=== PATIENT | female | born 1990 | race Caucasian/White ===

== ENCOUNTER 2021-04-05 23:42 | Emergency (ER) | payer BC ==
[2021-04-06] MEDS ORDERED: Sulfamethoxazole/Trimethoprim 800-160 MG Tab PO ONE (00:58)
[2021-04-06] MEDS ORDERED: Sulfamethoxazole/Trimethoprim 800-160 MG Tab ONE (01:46)
[2021-04-06 02:13] LABS: CARBON DIOXIDE,CO2 28.3 mmol/L (21.0-32.0); POTASSIUM,K 3.7 mmol/L (3.5-5.1)
[2021-04-06] MEDS ORDERED: Iopamidol 755 MG/ML 500 ML Multipack Bottle IVPUSH STA (02:50)
--- NOTE | 2021-04-06 03:21 | CT ---
INDICATION: Right CVA tenderness. UTI, failed outpatient treatment. Evaluate for abscess. COMPARISON: CT of the abdomen and pelvis without intravenous contrast from 06/01/2015. TECHNIQUE: CT examination of the abdomen and pelvis was performed before and after the uneventful intravenous administration of 100 cc of Isovue 370 while 2.5 mm thick axial sections were obtained from the lung bases through the pubic symphysis. Oral contrast was not administered. Please note that all CT scans at this facility use dose modulation, iterative reconstruction, and/or weight-based dosing when appropriate to reduce radiation dose to as low as reasonably achievable. FINDINGS: In the abdomen, the liver, spleen, pancreas, and adrenals are normal in appearance. There is a nonobstructive 3 millimeter calculus in the anterior interpolar right kidney, unchanged in appearance compared to the previous study. The kidneys are otherwise normal in appearance with uniform enhancement, with nothing seen to suggest pyelonephritis or renal abscess. The 2 previously seen areas of decreased enhancement in the anterior and lateral upper pole of the right kidney from previous old pyelonephritis have resolved without scarring. There is abnormal enhancement of the urothelium of the right ureter consistent with nonspecific inflammation. The right ureter remains mildly dilated to the crossing of the iliac vessels. There is no sign of any associated mass or calculus to produce the hydroureter, and this appearance appears to be chronic. The gallbladder is normal in appearance. The abdominal aorta is normal in caliber with no sign of dilatation. There is no sign of retroperitoneal mass or adenopathy. The stomach, loops of small bowel, and colon in the abdomen are normal in appearance. Again seen is a small fat containing periumbilical hernia. In the pelvis, the appendix is normal in appearance with no sign of inflammatory process. The loops of small bowel and colon in the pelvis are normal in appearance. The left ovary is a new cyst measuring 2.4 x 1.4 centimeters. The uterus and right adnexal region are normal in appearance. There is a new tiny amount of free fluid in the cul-de-sac on the right, nonspecific. The urinary bladder is normal in appearance. There is no sign of pelvic or inguinal mass or adenopathy. There is no sign of free air or free fluid in the abdomen. There is no sign of free air or extraluminal air in the pelvis. The lung bases are clear. The osseous structures are normal in appearance for the patient`s age. IMPRESSION: CT of the abdomen shows no sign of pyelonephritis or renal abscess. Interval resolution of the previously seen 2 areas of focal pyelonephritis in the upper pole of the right kidney. Stable 3 millimeter nonobstructive calculus in the interpolar right kidney. New mild enhancement of the urothelium of the mildly distended right proximal ureter representing nonspecific inflammation. The ureteral dilatation is unchanged from the previous study. CT of the pelvis shows a new left ovarian cyst measuring up to 2.4 centimeters in diameter. New tiny amount of free fluid in the cul-de-sac, nonspecific. Please note that all CT scans at this facility use dose modulation, iterative reconstruction, and/or weight-based dosing when appropriate to reduce radiation dose to as low as reasonably achievable. Dictated by Danny Billingsley MD @ 04/06/2021 3:20:55 AM (Electronically Signed)
--- NOTE | 2021-04-06 04:43 | EDM.PDOC ---
ED HPI GENERAL MEDICAL PROBLEM - General Chief Complaint: Genitourinary Problem Stated Complaint: POSSIBLE KIDNEY INFECTION Time Seen by Provider: 04/06/21 00:21 - History of Present Illness INITIAL COMMENTS - FREE TEXT/NARRATIVE: CHIEF COMPLAINT(S): Kidney infection HISTORY OF PRESENT ILLNESS: This is a 31-year-old woman with a past medical history of recent urinary tract infection who comes to the emergency department with a chief complaint of kidney infection. The patient states that approximately 1 week ago she had 1 round of antibiotics for a urinary tract infection. She states that starting tonight she started to experience right- sided flank pain with radiation to her groin. She states that she has pain with urination but denies any hematuria or increased frequency. She denies any fevers or chills but states that she did have 1 episode of vomiting. She describes the pain as burning and sharp. She rates her pain as 10 out of 10. She states that she has not yet tried any pain medications. There are no relieving factors. There are no exacerbating factors. She denies any other symptoms such as vaginal discharge or vaginal bleeding. She denies any abdominal pain otherwise. REVIEW OF SYSTEMS: Constitutional: Denies fever, chills. Eyes: Denies eye pain Ears, Nose, Mouth, & Throat: Denies earache Cardiovascular: Denies chest pain Respiratory: Denies shortness of breath Gastrointestinal: Denies Nausea, vomiting, diarrhea, hematochezia. Genitourinary: Positive for dysuria and right flank pain Skin:Denies a rash MSK: Denies joint pain Neurological: Denies blurred vision Psychiatric: Denies depression PAST MEDICAL HISTORY: As per history of present illness and as reviewed below otherwise noncontributory. SURGICAL HISTORY: As per history of present illness and as reviewed below otherwise noncontributory. SOCIAL HISTORY: As per history of present illness and as reviewed below otherwise noncontributory. FAMILY HISTORY: As per history of present illness and as reviewed below otherwi se noncontributory. EXAMINATION OF ORGAN SYSTEMS/BODY AREAS: Constitutional: Blood pressure is 114/68, heart rate 88, respiratory rate 17 with an oxygen saturation 96% on room air. Temperature 37.1 General: Young woman who does not appear to be in acute distress Psychiatric: Appropriate mood and affect. Eyes: No scleral icterus or conjunctival erythema ENMT: Moist mucous membranes. No pharyngeal erythema Cardiovascular: Regular, rate, and rhythm. No gallops, murmurs, or rubs. Bilateral upper extremity pulses symmetric and intact. No peripheral edema. No JVD. Respiratory: Lungs clear to auscultation bilaterally. No wheezes, rales, or rhonchi. Gastrointestinal: Soft, non-tender, non-distended. Normoactive bowel sounds Genitourinary: Suprapubic tenderness to palpation and right flank tenderness. Musculoskeletal: Normal range of motion. Skin: No lesions or abrasions. Neurological: Alert, GCS 15 MEDICAL DECISION MAKING AND COURSE IN THE ED WITH INTERPRETATION/REVIEW OF DIAG NOSTIC STUDIES: This is a 31-year-old woman with a recent urinary tract infection who comes to the emergency department with right CVA tenderness and suprapubic tenderness. Patient's vitals are completely normal however given the asymmetry on examination I will obtain a CT abdomen pelvis to evaluate for perinephric abscess versus nephrolithiasis. Will obtain labs including CBC, BMP, urinalysis and a Covid swab. Obtain an hCG. Laboratory: CBC reveals a leukocytosis 11.71 otherwise unremarkable. BMP reveals elevated creatinine at 1.1. Glucose is elevated 137. Urinalysis is positive for nitrates, leukocyte esterase with 75-80 WBCs. Interpretation: Positive hCG is negative. Covid is negative. The radiological images were viewed by myself along with reading the report from the radiologist. CT abdomen pelvis with contrast reveals no sign of pyelonephritis or renal abscess. There is interval resolution of previously seen 2 areas of pyelonephritis in the upper pole of the right kidney. There is a stable 3 mm nonobstructive calculus in the interpolar right kidney. New mild enhancement of the urothelium of the mildly distended right proximal ureter representing nonspecific inflammation. The ureteral dilation is unchanged from prior. There is a new ovarian cyst measuring 2.4 cm. And a tiny amount of free fluid in the pelvis. After labs and imaging I did discuss the results with the patient. At this time given her recurrent urinary tract infections and abnormal findings on CT I did encourage her to follow-up with her primary care physician for a referral to a urologist to have further evaluation. I discussed she should continue her antibiotics as prescribed and to return if she had any new or worsening symptoms. She was amenable to discharge and had no further questions DISPOSITION: The patient was discharged home in stable condition. The patient will follow up with primary care physician in 3 to 5 days CONDITION: Fair PROCEDURES: None FINAL IMPRESSION(S)/DIAGNOSES: 1. Acute urinary tract infection Addy Massey M.D. - Related Data Allergies Allergy/AdvReac Type Severity Reaction Status Date / Time amoxicillin Allergy Swelling Verified 04/06/21 00:17 azithromycin Allergy Swelling Verified 04/06/21 00:16 Penicillins Allergy Swelling Verified 04/06/21 00:15 Home Meds: Home Meds Ciprofloxacin/Ciprofloxa HCl [Cipro Xr 500 mg Tablet] 500 mg PO BID #14 tbmp.24hr 06/01/15 [Rx] Hydrocodone/Acetaminophen [Hydrocodon-Acetaminophen 5-325] 1 each PO Q4HR PRN #2 0 tablet 06/01/15 [Rx] Ondansetron [Zofran] 4 mg BUCCAL Q4H #10 tab 06/01/15 [Rx] Sulfamethoxazole/Trimethoprim [Bactrim Ds Tablet] 1 each PO BID #10 tablet 04/06/21 [Rx] Past Medical History HEENT History: Reports: None Cardiovascular History: Reports: None Respiratory History: Reports: None Gastrointestinal History: Reports: None Genitourinary History: Reports: Renal Calculus [employer] DEVELOPER History: Reports: Musculoskeletal History: Reports: None Neurological History: Reports: None Psychiatric History: Reports: Depression Endocrine/Metabolic History: Reports: None Hematologic History: Reports: None Immunologic History: Reports: None Oncologic (Cancer) History: Reports: None Dermatologic History: Reports: None - Infectious Disease History Infectious Disease History: Reports: Chicken Pox - Past Surgical History Head Surgeries/Procedures: Reports: None HEENT Surgical History: Reports: None Cardiovascular Surgical History: Reports: None Female Surgical History: Reports: Tubal Ligation Endocrine Surgical History: Reports: None Musculoskeletal Surgical History: Reports: None Social & Family History - Family History Cardiac: Reports: Hypertension, Pacemaker Oncologic: Reports: Colon - Tobacco Use Tobacco Use Status *Q: Never Tobacco User - Caffeine Use Caffeine Use: Reports: Tea - Recreational Drug Use Recreational Drug Use: No ED ROS GENERAL - Review of Systems Review Of Systems: See Below ED EXAM, GENERAL - Physical Exam Exam: See Below Course - Vital Signs Last Recorded V/S: Last Vital Signs Temp 37.1 C 04/06/21 00:18 Pulse 89 04/06/21 04:44 Resp 16 04/06/21 04:44 BP 116/75 04/06/21 04:44 Pulse Ox 97 04/06/21 04:44 - Orders/Labs/Meds Labs: Laboratory Tests 04/06/21 04/06/21 04/06/21 Range/Units 00:35 00:35 01:40 WBC (4.0-11.0) K/uL RBC (4.30-5.90) M/uL Hgb (12.0-16.0) g/dL Hct (36.0-46.0) % MCV (80.0-98.0) fL MCH (27.0-32.0) pg MCHC (31.0-37.0) g/dL RDW Std Deviation (28.0-62.0) fl RDW Coeff of Shaylee (11.0-15.0) % Plt Count (150-400) K/uL MPV (7.40-12.00) fL Neut % (Auto) (48.0-80.0) % Lymph % (Auto) (16.0-40.0) % [place] % (Auto) (0.0-15.0) % Eos % (Auto) (0.0-7.0) % Baso % (Auto) (0.0-1.5) % Neut # (Auto) (1.4-5.7) K/uL Lymph # (Auto) (0.6-2.4) K/uL [place] # (Auto) (0.0-0.8) K/uL Eos # (Auto) (0.0-0.7) K/uL Baso # (Auto) (0.0-0.1) K/uL Nucleated RBC % /100WBC Nucleated RBCs # K/uL Sodium (136-145) mmol/L Potassium (3.5-5.1) mmol/L Chloride (98-107) mmol/L Carbon Dioxide (21.0-32.0) mmol/L BUN (7.0-18.0) mg/dL Creatinine (0.6-1.0) mg/dL Est Cr Clr Drug Dosing mL/min Estimated GFR (MDRD) ml/min Glucose (74-106) mg/dL Calcium (8.5-10.1) mg/dL Urine Color YELLOW Urine Appearance CLOUDY Urine pH 7.5 (5.0-8.0) Ur Specific [place] 1.020 (1.001-1.035) Urine Protein >=300 H (NEGATIVE) mg/dL Urine Glucose (UA) NEGATIVE (NEGATIVE) mg/dL Urine Ketones NEGATIVE (NEGATIVE) mg/dL Urine Occult Blood LARGE H (NEGATIVE) Urine Nitrite POSITIVE H (NEGATIVE) Urine Bilirubin NEGATIVE (NEGATIVE) Urine Urobilinogen 0.2 (<2.0) EU/dL Ur Leukocyte Esterase MODERATE H (NEGATIVE) Urine RBC 25-30 (0-2/HPF) Urine WBC 75-80 (0-5/HPF) Ur Epithelial Cells RARE (NONE-FEW) Urine Bacteria FEW (NEGATIVE) Urine HCG, Qual NEGATIVE (NEGATIVE) SARS-CoV-2 RNA (CINTHYA) NEGATIVE (NEGATIVE) 04/06/21 04/06/21 Range/Units 01:40 01:40 WBC 11.71 H (4.0-11.0) K/uL RBC 4.41 (4.30-5.90) M/uL Hgb 12.7 (12.0-16.0) g/dL Hct 37.4 (36.0-46.0) % MCV 84.8 (80.0-98.0) fL MCH 28.8 (27.0-32.0) pg MCHC 34.0 (31.0-37.0) g/dL RDW Std Deviation 37.8 (28.0-62.0) fl RDW Coeff of Shaylee 12 (11.0-15.0) % Plt Count 273 (150-400) K/uL MPV 9.40 (7.40-12.00) fL Neut % (Auto) 84.9 H (48.0-80.0) % Lymph % (Auto) 9.4 L (16.0-40.0) % [place] % (Auto) 5.0 (0.0-15.0) % Eos % (Auto) 0.6 (0.0-7.0) % Baso % (Auto) 0.1 (0.0-1.5) % Neut # (Auto) 9.9 H (1.4-5.7) K/uL Lymph # (Auto) 1.1 (0.6-2.4) K/uL [place] # (Auto) 0.6 (0.0-0.8) K/uL Eos # (Auto) 0.1 (0.0-0.7) K/uL Baso # (Auto) 0.0 (0.0-0.1) K/uL Nucleated RBC % 0.0 /100WBC Nucleated RBCs # 0 K/uL Sodium 138 (136-145) mmol/L Potassium 3.7 (3.5-5.1) mmol/L Chloride 102 (98-107) mmol/L Carbon Dioxide 28.3 (21.0-32.0) mmol/L BUN 14 (7.0-18.0) mg/dL Creatinine 1.1 H (0.6-1.0) mg/dL Est Cr Clr Drug Dosing 60.17 mL/min Estimated GFR (MDRD) 57.2 ml/min Glucose 137 H (74-106) mg/dL Calcium 8.7 (8.5-10.1) mg/dL Urine Color Urine Appearance Urine pH (5.0-8.0) Ur Specific [place] (1.001-1.035) Urine Protein (NEGATIVE) mg/dL Urine Glucose (UA) (NEGATIVE) mg/dL Urine Ketones (NEGATIVE) mg/dL Urine Occult Blood (NEGATIVE) Urine Nitrite (NEGATIVE) Urine Bilirubin (NEGATIVE) Urine Urobilinogen (<2.0) EU/dL Ur Leukocyte Esterase (NEGATIVE) Urine RBC (0-2/HPF) Urine WBC (0-5/HPF) Ur Epithelial Cells (NONE-FEW) Urine Bacteria (NEGATIVE) Urine HCG, Qual (NEGATIVE) SARS-CoV-2 RNA (CINTHYA) (NEGATIVE) Meds: Medications Discontinued Medications Generic Name Dose Route Start Last Admin Trade Name Freq PRN Reason Stop Dose Admin Iopamidol 100 ml 04/06/21 02:50 04/06/21 02:51 Iopamidol 755 Mg/Ml 500 Ml Multipack Bottle IVPUSH 04/06/21 02:51 100 ml ONETIME STA Administration Trimethoprim/Sulfamethoxazole 1 tab 04/06/21 00:58 04/06/21 01:47 Sulfamethoxazole/Trimethoprim 800-160 Mg Tab PO 04/06/21 00:59 1 tab ONETIME ONE Administration Trimethoprim/Sulfamethoxazole Confirm 04/06/21 01:46 04/06/21 04:44 Sulfamethoxazole/Trimethoprim 800-160 Mg Tab Administered 04/06/21 01:47 Not Given Dose 1 tab .ROUTE .STK-MED ONE Departure - Departure Time of Disposition: 04:42 Disposition: Home, Self-Care 01 Condition: Fair Clinical Impression: UTI, Urinary tract infectious disease - Discharge Information *PRESCRIPTION DRUG MONITORING PROGRAM REVIEWED*: No *COPY OF PRESCRIPTION DRUG MONITORING REPORT IN PATIENT RASHI: No Prescriptions: Sulfamethoxazole/Trimethoprim [Bactrim Ds Tablet] 1 each PO BID #10 tablet Instructions: Urinary Tract Infection, Adult Referrals: PCP,None [Primary Care Provider] - Forms: ED Department Discharge Additional Instructions: You were evaluated today on an emergent basis. At this time I recommend that you use Tylenol and Motrin for pain relief. Your urine did show evidence of an infection and given the CT findings all of the abnormalities on the right side appear to be chronic. Given your recurrent urinary tract infection I do recommend you follow-up with a primary care physician in 3 to 5 days for referral to a urologist so that further work-up can be initiated. If you have any worsening pain, fever and not feeling better please return to the emergency department. Please use the antibiotics as prescribed until all antibiotics are finished. [facility] [address] [place] [address] [place] [address] The patient is informed of any results of their evaluation and diagnostic workup and all questions are answered. They are given discharge instructions and return precautions. The patient is stable for discharge. The patient states they understand and agree with the plan and that they will return if their symptoms get worse or if they have any new concerns. The following information is given to patients seen in the emergency department who are being discharged to home. This information is to outline your options for follow-up care. We provide all patients seen in our emergency department with a follow-up referral. The need for follow-up, as well as the timing and circumstances, are variable depending upon the specifics of your emergency department visit. If you don't have a primary care physician on staff, we will provide you with a referral. We always advise you to contact your personal physician following an emergency department visit to inform them of the circumstance of the visit and for follow-up with them and/or the need for any referrals to a consulting specialist. The emergency department will also refer you to a specialist when appropriate. This referral assures that you have the opportunity for follow-up care with a specialist. All of these measure are taken in an effort to provide you with optimal care, which includes your follow-up. Under all circumstances we always encourage you to contact your private physician who remains a resource for coordinating your care. When calling for follow-up care, please make the office aware that this follow-up is from your recent emergency room visit. If for any reason you are refused follow-up, please contact the [facility] Emergency Department at and asked to speak to the emergency department charge nurse.
[2021-04-06 04:45] VITALS: BP 116/75; PULSE 89
== END 2021-04-06 04:50 | disposition home or self-care (01) ==
LOC: MW.ED 23:42
DX: N39.0 Urinary tract infection, site not specified (principal); Z88.0 Allergy status to penicillin; Z88.1 Allergy status to other antibiotic agents; Z20.822 Contact with and (suspected) exposure to COVID-19
CPT/HCPCS: 36415; 74178; 80048; 81001; 81025; 85025; 87086; 87088; 87186; 87635; 99284; A9270; Q9967; U0002

== ENCOUNTER 2022-11-10 22:03 | Emergency (ER) | payer OTHER, BC ==
[2022-11-10 22:12] VITALS: BP 130/81; PULSE 88
[2022-11-10] MEDS ORDERED: Diphtheria,Pertussis(Acell),Tetanus Vaccine 0.5 ML Syringe IM ONE (22:20)
== END 2022-11-10 22:51 | disposition home or self-care (01) ==
LOC: MW.ED 22:03
DX: S61.412A Laceration without foreign body of left hand, initial encounter (principal); Z23 Encounter for immunization; Z88.0 Allergy status to penicillin; Z88.1 Allergy status to other antibiotic agents; W25.XXXA Contact with sharp glass, initial encounter; Y93.01 Activity, walking, marching and hiking
CPT/HCPCS: 12002; 73120-26-LT; 73120-LT; 90471; 90715; 99283; 99283-25

== ENCOUNTER 2023-10-12 06:33 | Day surgery (SDC) | payer BC ==
[2023-10-11 13:27] LABS: HEMATOCRIT 35.1 % (37.0-47.0); HEMOGLOBIN 11.4 g/dL (12.0-16.0); MEAN CORPUSCULAR HEMOGLOBIN 24.4 pg (28.0-32.0); MEAN CORPUSCULAR HGB CONC 32.5 g/dL (32.0-36.0); MEAN PLATELET VOLUME 9.5 fL (9.4-12.3); PLATELET COUNT,PLT 297 K/uL (150-400); RED BLOOD CELL COUNT 4.68 M/uL (4.10-5.30); WHITE BLOOD CELL COUNT,WBC 4.61 K/uL (3.9-11.3)
[2023-10-11 13:38] LABS: CALCIUM 8.7 mg/dL (8.5-10.1); CARBON DIOXIDE,CO2 25.3 mmol/L (21.0-32.0); CREATININE 0.9 mg/dL (0.6-1.0); POTASSIUM,K 3.2 mmol/L (3.5-5.1)
[2023-10-12] MEDS: Scopalamine 1mg/3day Transdermal Patch TOP ONE (06:48)
[2023-10-12] MEDS: Lactated Ringers 1,000 ML IV SCH (07:02)
[2023-10-12] MEDS ORDERED: Methylene Blue 100 MG/10 ML SDV ONE (07:23)
[2023-10-12] MEDS ORDERED: Bupivacaine 0.25% 30 ML SDV ONE ×2 (07:23→07:38)
[2023-10-12] MEDS ORDERED: dexmedeTOMIDine HCl 200 MCG/2 ML SDV ONE (07:28)
[2023-10-12] MEDS ORDERED: Morphine 2 MG/ML SYRINGE IVPUSH PRN (07:28)
[2023-10-12] MEDS ORDERED: Naloxone 0.4 MG/ML SDV IVPUSH PRN (07:28)
[2023-10-12] MEDS ORDERED: Ondansetron 4 MG/2 ML SDV IVPUSH PRN ×2 (07:28→10:00)
[2023-10-12] MEDS ORDERED: Albuterol 0.083% 2.5 MG/3 ML Neb Soln NEB PRN (07:28)
[2023-10-12] MEDS ORDERED: droPERidol 5 MG/2 ML SDV IVPUSH PRN (07:28)
[2023-10-12] MEDS ORDERED: Metoclopramide 10 MG/2 ML SDV IVPUSH PRN (07:28)
[2023-10-12] MEDS ORDERED: Rocuronium Bromide 50 MG/5 ML Syringe ONE ×2 (07:29→08:58)
[2023-10-12] MEDS ORDERED: Lidocaine 2% 5 ML SDV ONE (07:29)
[2023-10-12] MEDS ORDERED: Water For Injection, Sterile 20 ML ONE (07:29)
[2023-10-12] MEDS ORDERED: Dexamethasone 4 MG/ML 5 ML MDV ONE (07:29)
[2023-10-12] MEDS ORDERED: Propofol 200 MG/20 ML SDV ONE (07:32)
[2023-10-12] MEDS ORDERED: fentaNYL 100 MCG/2 ML SDV ONE (07:33)
[2023-10-12] MEDS ORDERED: Ketamine HCL/NACL, ISO-OSM 50 MG/5 ML Syringe ONE (07:33)
[2023-10-12] MEDS ORDERED: Bupivacaine 0.5%/EPINEPHrine 1:200,000 30 ML SDV ONE (07:38)
[2023-10-12] MEDS ORDERED: ceFAZolin 2 GM in Sodium Chloride 0.9% 50 ML IV ONE (07:42)
[2023-10-12] MEDS ORDERED: propofoL 50 ML ONE ×2 (07:46→08:40)
[2023-10-12] MEDS ORDERED: ceFAZolin 1 GM Vial ONE (08:13)
[2023-10-12] MEDS ORDERED: Magnesium Sulfate (4.06 MEQ/ML) 5 GM/10 ML SDV ONE (08:14)
[2023-10-12] MEDS ORDERED: Tranexamic Acid 1,000 MG/10 ML Vial ONE (08:54)
[2023-10-12] MEDS ORDERED: Sugammadex Sodium 200 MG/2 ML VIAL IV ONE (08:55)
[2023-10-12] MEDS ORDERED: Fluorescein 5 ML Vial ONE (09:18)
[2023-10-12] MEDS ORDERED: Furosemide 40 MG/4 ML VIAL ONE (09:18)
[2023-10-12] MEDS: HYDROmorphone 1 MG/ML Syringe IVPUSH PRN (10:13)
[2023-10-12] MEDS: fentaNYL 50 MCG/ML SDV IVPUSH PRN (10:46)
[2023-10-12] MEDS: Ketorolac 30 MG/ML SDV IVPUSH SCH (14:03)
[2023-10-12] MEDS: oxyCODONE 5 MG Tab PO PRN (16:44)
[2023-10-12] MEDS: Promethazine 25 MG/ML SDV IM PRN (17:35)
[2023-10-12] MEDS: Acetaminophen 325 MG Tab PO PRN (19:02)
[2023-10-13 06:07] LABS: BASOPHILS ABSOLUTE AUTO 0.01 K/uL (0.00-0.20); BASOPHILS PERCENT AUTO 0.1 % (0.0-1.0); HEMATOCRIT 32.7 % (37.0-47.0); HEMOGLOBIN 10.4 g/dL (12.0-16.0); IMMATURE GRAN ABSOLUTE AUTO 0.03 K/uL (0.00-0.05); IMMATURE GRAN PERCENT AUTO 0.3 % (0.0-0.4); LYMPHOCYTES ABSOLUTE AUTO 1.51 K/uL (1.00-4.80); LYMPHOCYTES PERCENT AUTO 14.3 % (24.0-44.0); MEAN CORPUSCULAR HEMOGLOBIN 24.3 pg (28.0-32.0); MEAN CORPUSCULAR HGB CONC 31.8 g/dL (32.0-36.0); MEAN CORPUSCULAR VOLUME 76.4 fL (83.0-99.0); MEAN PLATELET VOLUME 9.7 fL (9.4-12.3); MONOCYTES ABSOLUTE AUTO 0.63 K/uL (0.00-0.80); NEUTROPHILS ABSOLUTE AUTO 8.37 K/uL (1.80-7.70); NEUTROPHILS PERCENT AUTO 79.3 % (41.0-71.0); PLATELET COUNT,PLT 307 K/uL (150-400); RED BLOOD CELL COUNT 4.28 M/uL (4.10-5.30); WHITE BLOOD CELL COUNT,WBC 10.55 K/uL (3.9-11.3)
[2023-10-13 06:27] LABS: CALCIUM 8.3 mg/dL (8.5-10.1); CARBON DIOXIDE,CO2 26.7 mmol/L (21.0-32.0); CREATININE 1.1 mg/dL (0.6-1.0); EST CRCL DRUG DOSING (CG) 56.46 mL/min; POTASSIUM,K 3.9 mmol/L (3.5-5.1)
[2023-10-13 08:22] VITALS: BP 98/55; PULSE 65
== END 2023-10-13 11:33 | disposition home or self-care (01) ==
LOC: MW.SDS 06:33 → MW.OB 10:51 → MW.SDS 10-13 11:33
PROVIDERS: ATTEND Obstetrics & Gynecology
DX: D25.1 Intramural leiomyoma of uterus (principal); D25.2 Subserosal leiomyoma of uterus; N83.8 Other noninflammatory disorders of ovary, fallopian tube and broad ligament; N92.0 Excessive and frequent menstruation with regular cycle; N85.8 Other specified noninflammatory disorders of uterus; D64.9 Anemia, unspecified; F32.A Depression, unspecified; F34.1 Dysthymic disorder; E66.9 Obesity, unspecified; Z88.0 Allergy status to penicillin; Z88.1 Allergy status to other antibiotic agents; Z68.30 Body mass index [BMI] 30.0-30.9, adult; Z79.899 Other long term (current) drug therapy; Z87.891 Personal history of nicotine dependence
CPT/HCPCS: 36415; 58552; 64488; 76775; 80048; 84703; 85025; 85027; 86850; 86900; 86901; A9270; J0131; J0665; J0690; J1100; J1170; J1885; J1940; J2550; J2704; J3010; J3475; J3490; J7120; Q9968; 00944